=== PATIENT | male | born 1950 | race Caucasian/White ===

== ENCOUNTER 2019-10-24 20:46 | Outpatient (REF) | payer SELFPAY ==
[2019-10-26 09:44] LABS: HIV-1/2 Ag & Ab Screen Negative (Negative)
[2019-10-28 10:58] LABS: HBs Antibody, Quant <3.1 mIU/mL (See Note); Hepatitis B Surface Ab Negative (See Note)
[2019-10-28 11:04] LABS: Hepatitis B Surface Ag Negative (Negative)
== END 2019-10-24 21:06 ==
LOC: NCHCN 20:46
PROVIDERS: PCP Family Medicine; Visit Provider Family Medicine
DX: Z11.59 Encounter for screening for other viral diseases (principal); Z11.4 Encounter for screening for human immunodeficiency virus [HIV]; Z01.84 Encounter for antibody response examination
CPT/HCPCS: 86706; 87340; 87389